=== PATIENT | female | born 1925 | race Caucasian/White ===

== ENCOUNTER 2016-08-02 19:44 | Emergency (ER) | payer OTHER ==
[~2016-08-02 19:44] MED LIST: ALBUTEROL1.25 MG/1 INH/SOL; AUGMENTIN 875 M1 TAB PO; COMBIVENT1 ARO INH; COUMADIN5 M2 PO; COUMADIN7.5 M1 PO; HYDROCODONE/ACE1 TA1 PO; LANOXIN-DIGO0.125 MG PO; LIPITOR20 M2 PO; LOSARTAN POTAS100 M1 PO; MEDROL4 M2 PO; TESSALON PERLE100 M1 PO; VENTOLIN HFA18 GM INH; VERAPAMIL ER240 M1 PO; VERAPAMIL HCL80 MG PO; ZOFRAN4 M2 PO
[2016-08-02 20:11] LABS: ABSOLUTE BASOPHIL COUNT 0.1 /CUMM (0.0-0.2); ABSOLUTE EOSINOPHIL COUNT 0.3 /CUMM (0.0-0.7); ABSOLUTE GRANULOCYTE CT 4.9 /CUMM (1.4-6.5); ABSOLUTE LYMPH COUNT 1.9 /CUMM (1.2-3.4); ABSOLUTE MONOCYTE COUNT 0.9 /CUMM (0.10-0.60); BASOPHIL % 0.8 % (0.0-2.0); EOSINOPHIL % 3.6 % (0-5); GRANULOCYTE % 60.5 % (42.2-75.2); HEMATOCRIT 44.6 % (37-47); MEAN CORPUSCULAR HGB 34.2 PG (27.0-31.0); MEAN CORPUSCULAR HGB CONC 34.1 G/DL (33.0-37.0); MEAN CORPUSCULAR VOLUME 100.3 FL (81.0-99.0); MEAN PLATELET VOLUME 8.4 FL (7.4-10.4); PLATELET COUNT 171 /CUMM (130-400); RBC DISTRIBUTION WIDTH 14.6 % (11.5-14.5); RED BLOOD CELL CT 4.45 /CUMM (4.20-5.40); WHITE BLOOD CELL COUNT 8.2 /CUMM (4.8-10.8)
[2016-08-02 20:13] LABS: PT 36.2 SEC (9.4-12.5)
--- NOTE | 2016-08-02 20:38 | ED NOSE COMPLAINT ---
History of Present Illness General Chief Complaint: Epistaxis/Nasal Foreign Body Stated Complaint: NOSE BLEED, ON COUMADIN Source: patient Exam Limitations: no limitations Vital Signs & Intake/Output Vital Signs & Intake/Output Vital Signs Date Time Temp Pulse Resp B/P Pulse O2 O2 Flow FiO2 Ox Delivery Rate 08/02 2238 78 16 154/78 08/02 1957 88 22 169/100 97 Room Air ED Intake and Output 08/03 0000 08/02 1200 Intake Total 0 Output Total Balance 0 Intake, Oral 0 Allergies Coded Allergies: Sulfa (Sulfonamide Antibiotics) (Intermediate, RASH 10/19/15) aspirin (Intermediate, COUMADIN PT 10/19/15) Reconcile Medications Albuterol Sulfate (Ventolin Hfa) 90 MCG HFA.AER.AD 2 PUF INH Q4-6 PRN PRN SHORTNESS OF BREATH Albuterol Sulfate 1.25 MG/3 ML VIAL.NEB 1 Vial INH/SINDHU Q4-6 PRN SHORTNESS OF BREATH Atorvastatin Calcium (Lipitor) 20 MG TABLET 1 TAB PO QPM CHOLESTEROL ( Reported) Digoxin (Lanoxin-Digoxin 0.125MG Tab) 125 MCG TABLET 1 TAB PO DAILY CARDIAC ( Reported) Losartan Potassium 100 MG TABLET 1 TAB PO DAILY HEART (Reported) Verapamil HCl (Verapamil ER) 240 MG TABLET.ER 1 TAB PO QPM HEART (Reported) Warfarin Sodium (Coumadin) 5 MG TABLET 1 TAB PO 1700 BLOOD THINNER (Reported) Warfarin Sodium (Coumadin) 7.5 MG TABLET 1 TAB PO 1700 BLOOD THINNER ( Reported) Triage Note: PER PT NOSE BLEED X 1 HR. PT ON COUMADIN FOR AFIB NOSE WONT STOP BLEEDING LAST LEVEL 07/16 WAS HIGH D/T PREDNISONE Triage Nurses Notes Reviewed? yes Onset: Abrupt Duration: constant Timing: single episode today Injury Environment: home Severity: moderate Severity Numbers: 5 No Modifying Factors: none HPI: Patient is a 89-year-old female currently on Coumadin who presents emergency room saying that 90 minutes prior to arrival while in the tub patient bent forward and noticed acute onset of bilateral nose bleed. With direct pressure still continues. Patient denies any mechanism of injury patient does complain of chronic dizziness however no changes. No recent falls has occurred (CONNIE MACHUCA,MINH) Past History Travel History Traveled to [place] past 21 day No Medical History Any Pertinent Medical History? see below for history Neurological: NONE EENT: NONE Cardiovascular: AFIB, hypertension, hyperlipidemia Respiratory: NONE Gastrointestinal: NONE Hepatic: NONE Renal: NONE Musculoskeletal: NONE Psychiatric: NONE Endocrine: NONE Tetanus Vaccine: 02/04/15 Surgical History Surgical History: hysterectomy Psychosocial History What is your primary language Icelandic Tobacco Use: Never used Family History Hx Contributory? No (MINH CRENSHAW) Review of Systems Review of Systems Constitutional: Reports: no symptoms. EENTM: Reports: see HPI, epistaxis. Respiratory: Reports: no symptoms. Cardiovascular: Reports: no symptoms. GI: Reports: no symptoms. Genitourinary: Reports: no symptoms. Musculoskeletal: Reports: no symptoms. Skin: Reports: no symptoms. Neurological/Psychological: Reports: no symptoms. Hematologic/Endocrine: Reports: see HPI, bleeding. Immunologic/Allergic: Reports: no symptoms. All Other Systems: Reviewed and Negative (MINH CRENSHAW) Physical Exam Physical Exam General Appearance: well developed/nourished, no apparent distress Nose: dried blood, RIGHT NARES NOTED DRIED BLOOD nO ACTIVE BLEEDING NARES ARE PATENT Comments: Well-developed well-nourished person in no acute distress HEENT: extraocular motion intact, no nystagmus. Pupils equally round and reactive to light and accommodation. External auditory canal and Tympanic membranes clear. Pharynx normal. No swelling or edema. Neck: Supple, no lymphadenopathy, normal range of motion without pain or tenderness Back: Nontender, no CVA tenderness. Cardiovascular: Regular rate and rhythms no murmurs rubs or gallops, normal JVP Respiratory: Chest nontender. No respiratory distress.breath sounds clear to auscultation bilaterally Extremity: No edema, no calf tenderness to palpation, normal and equal pulses. Neuro: Alert oriented x3, motor sensory normal, Skin: No appreciable rash on exposed skin, skin is warm and dry. Psych: Mood and affect is normal, memory and judgment is normal. (MINH CRENSHAW) Progress Differential Diagnoses I considered the following diagnoses in my evaluation of the patient: [Epistasis , hypercoagulable state, deviated septum] Plan of Care: Orders Procedure Date/time Status CBC WITHOUT DIFFERENTIAL 08/02 1999 Complete PROTHROMBIN TIME 08/02 1958 Complete Laboratory Tests 08/02/161999: PT 36.2 H, INR 3.49 H, CBC w Diff NO MAN DIFF REQ, RBC 4.45, MCV 100.3 H, MCH 34.2 H, RDW 14.6 H, MPV 8.4, Gran % 60.5, Lymphocytes % 23.7, Monocytes % 11.4 H, Eosinophils % 3.6, Basophils % 0.8, Absolute Granulocytes 4.9, Absolute Lymphocytes 1.9, Absolute Monocytes 0.9 H, Absolute Eosinophils 0.3, Absolute Basophils 0.1, PUBS MCHC 34.1 Initial examination shows no active bleeding and nares are patent. I applied thrombin soaked into gauze in which I then packed the right nares with direct pressure of tongue depressor after approximately 30 minutes the packing was removed on reinspection there is no active bleeding nares was still patent and approximately 15 minutes later patient was reevaluated again and now recurrence of nosebleed had occurred. Upon discharge patient looks well no apparent distress and patient had no exacerbation of epistasis while in the emergency room. I instructed patient how to apply direct pressure if nosebleed recurs and if still continues to return to the emergency room Patient also was advised to discontinue for 1 day the Coumadin as patient had elevated INR and to recur on Tuesday. Family agrees with disposition plan and has no questions (MINH CRENSHAW) Initial ED EKG: none (MINH CRENSHAW) Departure Departure Disposition: HOME OR SELF CARE Condition: Stable Clinical Impression Primary Impression: Epistaxis Secondary Impressions: Hypercoagulable state Referrals: CARIN CORTEZ DO (PCP/Family) Referred to [facility] as new patient No Additional Instructions: As discussed tomorrow please discontinue for 1 day OF YOU Coumadin as YOUR INR is mildly elevated today. Continue with your Coumadin thereafter as directed. If bleeding of her nose reoccurs apply pressure for approximately 10-15 minutes and if the bleeding does not stop return to the emergency room. Follow-up with your primary care doctor as directed Departure Forms: Customer Survey General Discharge Information (MINH CRENSHAW) PA/HEEL EMERY BUFFER Co-Sign Statement Statement: ED Attending supervision documentation- [] I saw and evaluated the patient. I have also reviewed all the pertinent lab results and diagnostic results. I agree with the findings and the plan of care as documented in the PA's/HEEL EMERY BUFFER's documentation. [x] I have reviewed the ED Record and agree with the PA's/HEEL EMERY BUFFER's documentation. [] Additions or exceptions (if any) to the PAs/HEEL EMERY BUFFER's note and plan are summarized below: [] (VIKKI SERRANO,RAYA Du)
[2016-08-02 22:38] VITALS: BP 154/78
== END 2016-08-02 22:40 ==
LOC: ERH 19:44
PROVIDERS: Emergency Medicine
DX: R04.0 Epistaxis (principal); D68.59 Other primary thrombophilia; Z79.01 Long term (current) use of anticoagulants

== ENCOUNTER 2016-08-14 01:17 | Emergency (ER) | payer OTHER ==
[~2016-08-14] VITALS: Ht 165.1 cm; Wt 72.6 kg
--- NOTE | 2016-08-14 01:20 | ED NOSE COMPLAINT ---
History of Present Illness General Chief Complaint: Epistaxis/Nasal Foreign Body Stated Complaint: EPISTAXIS Source: patient, family Exam Limitations: no limitations Vital Signs & Intake/Output Vital Signs & Intake/Output Vital Signs Date Time Temp Pulse Resp B/P Pulse O2 O2 Flow FiO2 Ox Delivery Rate 08/14 0150 Room Air 08/14 0121 97.7 92 20 140/82 92 Room Air Allergies Coded Allergies: Sulfa (Sulfonamide Antibiotics) (Intermediate, RASH 10/19/15) aspirin (Intermediate, COUMADIN PT 10/19/15) Reconcile Medications Albuterol Sulfate (Ventolin Hfa) 90 MCG HFA.AER.AD 2 PUF INH Q4-6 PRN PRN SHORTNESS OF BREATH Albuterol Sulfate 1.25 MG/3 ML VIAL.NEB 1 Vial INH/SINDHU Q4-6 PRN SHORTNESS OF BREATH Amoxicillin/Potassium Clav (Augmentin 875-125 Tablet) 875 MG-125 MG TABLET 1 TAB PO BID PROPHYLAXIS Atorvastatin Calcium (Lipitor) 20 MG TABLET 1 TAB PO QPM CHOLESTEROL ( Reported) Digoxin (Lanoxin-Digoxin 0.125MG Tab) 125 MCG TABLET 1 TAB PO DAILY CARDIAC ( Reported) Losartan Potassium 100 MG TABLET 1 TAB PO DAILY HEART (Reported) Verapamil HCl (Verapamil ER) 240 MG TABLET.ER 1 TAB PO QPM HEART (Reported) Warfarin Sodium (Coumadin) 5 MG TABLET 1 TAB PO 1700 BLOOD THINNER (Reported) Warfarin Sodium (Coumadin) 7.5 MG TABLET 1 TAB PO 1700 BLOOD THINNER ( Reported) Triage Nurses Notes Reviewed? yes Onset: Abrupt Duration: hour(s): Timing: single episode today Injury Environment: home Severity: moderate Modifying Factors: Improves With: other. Associated Symptoms: right nare bleeding HPI: 89 yo woman, our coumadin for afib, presents with bleeding from right nare for the past hour. She notes, "I got up from bed and the blood just started pouring out." She notes no lightheadedness or pain. She had a similar episode 2 weeks ago. She is otherwise well and does not confer precipitating causes such as allergies , sinus infection. Past History Travel History Traveled to [place] past 21 day No Medical History Any Pertinent Medical History? see below for history Neurological: NONE EENT: NONE Cardiovascular: AFIB, hypertension, hyperlipidemia Respiratory: NONE Gastrointestinal: NONE Hepatic: NONE Renal: NONE Musculoskeletal: NONE Psychiatric: NONE Endocrine: NONE Tetanus Vaccine: 02/04/15 Surgical History Surgical History: hysterectomy Psychosocial History What is your primary language Hungarian Family History Hx Contributory? No Review of Systems Review of Systems Constitutional: Reports: no symptoms. EENTM: Reports: no symptoms. Respiratory: Reports: no symptoms. Cardiovascular: Reports: no symptoms. GI: Reports: no symptoms. Genitourinary: Reports: no symptoms. Musculoskeletal: Reports: no symptoms. Skin: Reports: no symptoms. Neurological/Psychological: Reports: no symptoms. Hematologic/Endocrine: Reports: no symptoms. Immunologic/Allergic: Reports: no symptoms. All Other Systems: Reviewed and Negative Physical Exam Physical Exam General Appearance: well developed/nourished, mild distress Head: atraumatic Eyes: Bilateral: normal appearance. Nose: right nare bleeding, anterior. Mouth/Throat: normal mouth inspection, pharynx normal Neck: normal inspection, supple Cardiovascular/Respiratory: normal breath sounds, regular rate/rhythm Back: normal inspection Neurologic/Psych: awake, alert, oriented x 3, normal mood/affect Skin: intact, normal color, warm/dry Progress Differential Diagnoses I considered the following diagnoses in my evaluation of the patient: right nare epistaxis, anterior vs posterior. Plan of Care: Orders Procedure Date/time Status PARTIAL THROMBOPLASTIN TIME 08/14 120 Complete PROTHROMBIN TIME 08/14 120 Complete CBC WITHOUT DIFFERENTIAL 08/14 120 Complete Current Medications Sig/Gui Start time Last Medication Dose Stop Time Status Admin Amoxicillin/ 1,000 MG ONCE ONE 08/14 329 UNVr Clavulanate Potassium 08/14 330 (Augmentin) Laboratory Tests 08/14/16 0144: PT 28.1 H, INR 2.70 H, APTT 45 H, CBC w Diff NO MAN DIFF REQ, RBC 3.90 L, MCV 99.5 H, MCH 33.8 H, RDW 14.2, MPV 8.2, Gran % 69.0, Lymphocytes % 16.8 L, Monocytes % 10.6 H, Eosinophils % 3.2, Basophils % 0.4, Absolute Granulocytes 6.4, Absolute Lymphocytes 1.6, Absolute Monocytes 1.0 H, Absolute Eosinophils 0.3, Absolute Basophils 0, PUBS MCHC 34.0 Initial ED EKG: none Departure Departure Disposition: HOME OR SELF CARE Condition: Stable Clinical Impression Primary Impression: Epistaxis Referrals: CARIN CORTEZ DO (PCP/Family) Departure Forms: Customer Survey General Discharge Information Prescriptions: Current Visit Scripts Amoxicillin/Potassium Clav (Augmentin 875-125 Tablet) 1 TAB PO BID #20 TAB Comments 08/14/16, 3:30am.... pt feeling well. no active bleeding in ED after placing nasal rocket... pt safe for discharge... gave rx for augmentin... pt to follow up with ent on tuesday or return to ED on tuesday to have nasal rocket removed. Procedures Epistaxis/Nasal Foreign Body Status: bleeding Clots Cleared Nasal Passage: by patient blowing Nasal Drops Instilled: Bilateral: Afphrin. Ext Pressure/Nose Pinch (min): 40 Inspected With: otoscope Bleeding Site: right nare, copious, but appears anterior Hemostatic Nasal Balloon: Right: Inserted Posterior. Progress: excellent result.
[2016-08-14 01:53] LABS: ABSOLUTE BASOPHIL COUNT 0 /CUMM (0.0-0.2); ABSOLUTE EOSINOPHIL COUNT 0.3 /CUMM (0.0-0.7); ABSOLUTE GRANULOCYTE CT 6.4 /CUMM (1.4-6.5); ABSOLUTE LYMPH COUNT 1.6 /CUMM (1.2-3.4); BASOPHIL % 0.4 % (0.0-2.0); EOSINOPHIL % 3.2 % (0-5); HEMATOCRIT 38.8 % (37-47); MEAN CORPUSCULAR HGB 33.8 PG (27.0-31.0); MEAN CORPUSCULAR VOLUME 99.5 FL (81.0-99.0); MEAN PLATELET VOLUME 8.2 FL (7.4-10.4); PLATELET COUNT 423 /CUMM (130-400); RBC DISTRIBUTION WIDTH 14.2 % (11.5-14.5); WHITE BLOOD CELL COUNT 9.3 /CUMM (4.8-10.8)
[2016-08-14 02:02] LABS: PT 28.1 SEC (9.4-12.5); PTT 45 SEC (25-37)
[2016-08-14] MEDS ORDERED: AUGMENTIN 875-1 EACH PO (03:24)
[2016-08-14 03:39] VITALS: BP 136/72
== END 2016-08-14 03:40 ==
LOC: ERH 01:17
PROVIDERS: Pediatrics
DX: R04.0 Epistaxis (principal); Z79.01 Long term (current) use of anticoagulants
CPT/HCPCS: J3490

== ENCOUNTER 2016-08-15 12:39 | Emergency (ER) | payer OTHER ==
[~2016-08-15] VITALS: Ht 165.1 cm; Wt 72.6 kg
[~2016-08-15 12:39] MED LIST changes: +AUGMENTIN 875-1 EACH PO
--- NOTE | 2016-08-15 14:23 | ED GENERAL ADULT ---
History of Present Illness General Chief Complaint: General Adult Stated Complaint: PT WEAK, S/P EPISTAXIS Source: patient, family, old records Exam Limitations: no limitations Allergies Coded Allergies: Sulfa (Sulfonamide Antibiotics) (Intermediate, RASH 10/19/15) aspirin (Intermediate, COUMADIN PT 10/19/15) Reconcile Medications Albuterol Sulfate (Ventolin Hfa) 90 MCG HFA.AER.AD 2 PUF INH Q4-6 PRN PRN SHORTNESS OF BREATH Albuterol Sulfate 1.25 MG/3 ML VIAL.NEB 1 Vial INH/SINDHU Q4-6 PRN SHORTNESS OF BREATH Amoxicillin/Potassium Clav (Augmentin 875-125 Tablet) 875 MG-125 MG TABLET 1 TAB PO BID PROPHYLAXIS Atorvastatin Calcium (Lipitor) 20 MG TABLET 1 TAB PO QPM CHOLESTEROL ( Reported) Digoxin (Lanoxin-Digoxin 0.125MG Tab) 125 MCG TABLET 1 TAB PO DAILY CARDIAC ( Reported) Losartan Potassium 100 MG TABLET 1 TAB PO DAILY HEART (Reported) Verapamil HCl (Verapamil ER) 240 MG TABLET.ER 1 TAB PO QPM HEART (Reported) Warfarin Sodium (Coumadin) 5 MG TABLET 1 TAB PO 1700 BLOOD THINNER (Reported) Warfarin Sodium (Coumadin) 7.5 MG TABLET 1 TAB PO 1700 BLOOD THINNER ( Reported) Triage Note: RECEIVED 89 YO FEMALE C/O WEAKNESS SINCE HAVING A NOSEBLEED. PT WAS HERE TUESDAY NIGHT FOR NOSEBLEED AND SEEN DR GAGE, RIGHT NARE PACKED. PT REPORTS SHE LOST ALOT OG BLOOD. NO CHEST PAIN, CHRONIC SOB. Triage Nurses Notes Reviewed? yes HPI: Patient is an 89-year-old female brought in for evaluation of generalized weakness. Patient was seen in the emergency department approximately 1.5 days ago for right-sided epistaxis. Patient had a Rhino Rocket placed and was placed on antibiotics. Since then patient has had increasing generalized weakness, decreased appetite and decreased oral intake. Generalized weakness is moderate to severe. Patient reports chronic dyspnea that worsened with exertion, no recent change. Patient denies fevers, chills, chest pain, abdominal pain. Patient's daughter reports that patient swallowed a lot of blood when she was having the nosebleed and has been having some black stools today which they attribute to the ingested blood from the epistaxis. Patient has not taken her Coumadin since being seen for the epistaxis. (HEHAL MONSIVAIS) Vital Signs & Intake/Output Vital Signs & Intake/Output Vital Signs Date Time Temp Pulse Resp B/P Pulse O2 O2 Flow FiO2 Ox Delivery Rate 08/15 1719 110 16 122/76 97 Room Air 08/15 1554 99.2 95 18 122/80 95 Room Air 08/15 1545 Room Air 08/15 1300 98.4 105 20 128/77 97 Room Air Past History Travel History Traveled to [place] past 21 day No Medical History Any Pertinent Medical History? see below for history Neurological: NONE EENT: NONE Cardiovascular: AFIB, hypertension, hyperlipidemia Respiratory: NONE Gastrointestinal: NONE Hepatic: NONE Renal: NONE Musculoskeletal: NONE Psychiatric: NONE Endocrine: NONE Tetanus Vaccine: 02/04/15 Surgical History Surgical History: hysterectomy Psychosocial History What is your primary language Salvadorean Tobacco Use: Never used Family History Hx Contributory? No (HAL REYES) Review of Systems Review of Systems Constitutional: Denies: chills, fever. EENTM: Reports: see HPI. Respiratory: Reports: short of breath (chronic, unchanged). Denies: cough. Cardiovascular: Denies: chest pain, syncope. GI: Reports: nausea. Denies: abdominal pain, diarrhea, vomiting. Genitourinary: Reports: frequency. Musculoskeletal: Reports: no symptoms. Skin: Reports: no symptoms. Neurological/Psychological: Reports: depressed (?). Denies: headache. Hematologic/Endocrine: Reports: bleeding (epistaxis). Immunologic/Allergic: Denies: splenectomy. (HAL REYES) Physical Exam Physical Exam General Appearance: alert, awake Head: atraumatic, normal appearance Eyes: Bilateral: normal appearance, PERRL, EOMI. Ears, Nose, Throat: rhino rocket in place in right nare. No apparent active bleeding Neck: normal inspection, supple, full range of motion Respiratory: normal breath sounds, no respiratory distress, lungs clear Cardiovascular: irregularly irregular Gastrointestinal: soft, non-tender Back: normal inspection, normal range of motion Extremities: 2+ bilateral lower extremity edema Neurologic/Psych: awake, alert, oriented x 3 Skin: normal color, warm/dry Lymphatic: no anterior cervical charles Core Measures ACS in differential dx? Yes CVA/TIA Diagnosis: No Severe Sepsis Present: No Septic Shock Present: No (HAL REYES) Progress Differential Diagnoses I considered the following diagnoses in my evaluation of the patient: anemia, toxic shock syndrome, pneumonia, UTI, intra-abdominal infection, dehydration, electrolyte abnormality Initial ED EKG: atrial fibrillation rate in the 110s normal axis, nonspecific ST /T-wave changes compared to previous EKG Prior EKG: changed (nonspecific st/t) (CHAITANYA MACHUCA,HAL) Plan of Care: Orders Procedure Date/time Status URINALYSIS 08/15 1513 Complete MISTAKE 08/15 144 Active TROPONIN LEVEL 08/15 144 Complete PROTHROMBIN TIME 08/15 144 Complete DIGOXIN 08/15 144 Complete COMPREHENSIVE METABOLIC PANEL 08/15 144 Complete CBC WITHOUT DIFFERENTIAL 08/15 144 Complete EKG 08/15 144 Active Laboratory Tests 08/15/16 1600: Urine Color YEL, Urine Clarity CLEAR, Urine pH 7.0, Ur Specific [place] 1.010, Urine Protein NEG, Urine Ketones NEG, Urine Nitrite NEG, Urine Bilirubin NEG, Urine Urobilinogen 0.2, Ur Leukocyte Esterase TRACE H, Ur Microscopic SEDIMENT EXAMINED, Urine RBC RARE, Urine WBC 1-3 H, Ur Epithelial Cells MOD H, Urine Hemoglobin NEG, Urine Glucose NEG 08/15/16 1452: Anion Gap 11, Estimated GFR > 60, BUN/Creatinine Ratio 24.3, Glucose 87, Calcium 9.6, Total Bilirubin 0.8, AST 27, ALT 51, Alkaline Phosphatase 124, Troponin I < 0.01, Total Protein 7.1, Albumin 3.7, Globulin 3.4, Albumin/Globulin Ratio 1.1, PT 25.3 H, INR 2.43 H, CBC w Diff NO MAN DIFF REQ, RBC 3.68 L, MCV 99.7 H, MCH 33.8 H, RDW 14.7 H, MPV 7.8, Gran % 75.1, Lymphocytes % 12.5 L, Monocytes % 8.9, Eosinophils % 1.8, Basophils % 1.7, Absolute Granulocytes 11.4 H, Absolute Lymphocytes 1.9, Absolute Monocytes 1.4 H, Absolute Eosinophils 0.3, Absolute Basophils 0.3, PUBS MCHC 33.9, Digoxin 0.5 L 1450: Rhino rocket in place greater than 36 hours. Small amount of saline instilled to area, balloon deflated, and rhino rocket removed. 1455: Discussed with and seen by Dr. Oshea. 1650: Patient reports feeling improvement of her general weakness after 500cc of saline and drinking a bottle of ensure. Patient's elevated white blood cell count was discussed extensively with the patient and her daughter. Patient's lungs clear throughout, patient reports that her breathing is at her baseline. No new abdominal pain or tenderness. Discussed obtaining a chest x-ray and CT scan of the abdomen and pelvis, patient declined. Patient instructed to follow up with her primary care doctor this week for further evaluation and return to the emergency department immediately if she develops any fevers, increasing weakness, or any worsening of symptoms. No further epistaxis in the emergency department. 1710: Patient ambulated with a walker, at her baseline according to her daughter and her. Patient wants to go home. Further work-up deferred. (HAL REYES) Departure Departure Disposition: HOME OR SELF CARE Condition: Stable Clinical Impression Primary Impression: General weakness Secondary Impressions: Elevated WBC count Qualifiers: Leukocytosis type: unspecified Qualified Code: D72.829 - Elevated white blood cell count, unspecified Referrals: CARIN CORTEZ DO (PCP/Family) Additional Instructions: Follow-up with your primary care doctor this week for further evaluation. Call Tuesday or Tuesday morning for appointment. Return to emergency Department immediately if she developed a temperature 100.3 degrees or higher, increasing weakness, abdominal pain, chest pain, vomiting, breathing worsening, or worsening of symptoms. Also call your long term tomorrow regarding further coumadin use. Departure Forms: Customer Survey General Discharge Information (HAL REYES) PA/ALUMINUM SIDING APPLICATOR Co-Sign Statement Statement: ED Attending supervision documentation- [x] I saw and evaluated the patient. I have also reviewed all the pertinent lab results and diagnostic results. I agree with the findings and the plan of care as documented in the PA's/ALUMINUM SIDING APPLICATOR's documentation. [] I have reviewed the ED Record and agree with the PA's/ALUMINUM SIDING APPLICATOR's documentation. [] Additions or exceptions (if any) to the PAs/ALUMINUM SIDING APPLICATOR's note and plan are summarized below: [] (LARRY SERRANO,RUKHSANA Shirley) Critical Care Note Critical Care Note Critical Care Time: non-applicable (HAL REYES)
[2016-08-15 14:58] LABS: ABSOLUTE BASOPHIL COUNT 0.3 /CUMM (0.0-0.2); ABSOLUTE EOSINOPHIL COUNT 0.3 /CUMM (0.0-0.7); ABSOLUTE GRANULOCYTE CT 11.4 /CUMM (1.4-6.5); ABSOLUTE LYMPH COUNT 1.9 /CUMM (1.2-3.4); ABSOLUTE MONOCYTE COUNT 1.4 /CUMM (0.10-0.60); BASOPHIL % 1.7 % (0.0-2.0); EOSINOPHIL % 1.8 % (0-5); GRANULOCYTE % 75.1 % (42.2-75.2); HEMATOCRIT 36.7 % (37-47); MEAN CORPUSCULAR HGB 33.8 PG (27.0-31.0); MEAN CORPUSCULAR HGB CONC 33.9 G/DL (33.0-37.0); MEAN CORPUSCULAR VOLUME 99.7 FL (81.0-99.0); MEAN PLATELET VOLUME 7.8 FL (7.4-10.4); PLATELET COUNT 405 /CUMM (130-400); RBC DISTRIBUTION WIDTH 14.7 % (11.5-14.5); RED BLOOD CELL CT 3.68 /CUMM (4.20-5.40)
[2016-08-15 14:59] LABS: WHITE BLOOD CELL COUNT 15.2 /CUMM (4.8-10.8)
[2016-08-15 15:05] LABS: PT 25.3 SEC (9.4-12.5)
[2016-08-15 17:19] VITALS: BP 122/76
== END 2016-08-15 17:42 ==
LOC: ERH 12:39
PROVIDERS: Physician Assistant
DX: R53.1 Weakness (principal); R79.89 Other specified abnormal findings of blood chemistry
CPT/HCPCS: 81001; 93005; 93010; J1644; J7040